=== PATIENT | female | born 1955 | race Two or more races ===

== ENCOUNTER 2021-08-19 16:47 | Emergency (ER) | payer MEDICARE ==
[~2021-08-19] VITALS: Ht 172.7 cm; Wt 68.2 kg
[2021-08-19 19:41] VITALS: BP 191/101
== END 2021-08-19 22:09 | disposition home or self-care (01) ==
LOC: EMS 16:47
DX: F20.9 Schizophrenia, unspecified (principal)
CPT/HCPCS: 99285; Z7502